=== PATIENT | male | born 1950 | race Hispanic/Latino ===

== ENCOUNTER 2022-05-10 06:04 | Day surgery (SDC) | payer OTHER, MEDICARE ==
[2022-05-05 11:47] LABS: BASOPHILS % (AUTO) 0.9 % (0.0-5.0); EOSINOPHILS % (AUTO) 2.9 % (0.0-8.0); HEMATOCRIT 36.9 % (42-54); LYMPHOCYTES % (AUTO) 27.8 % (21.0-51.0); MEAN CORPUSCULAR HEMOGLOBIN 27.4 pg (27.0-33.0); MEAN CORPUSCULAR HGB CONC 30.6 g/dL (32.0-36.0); MEAN CORPUSCULAR VOLUME 89.3 fL (79-99); MONOCYTES % (AUTO) 11.8 % (3.0-13.0); NEUTROPHILS % (AUTO) 56.4 % (40.0-77.0); PLATELET COUNT (AUTO) 166 K/uL (130-400); RED BLOOD CELL COUNT(AUTO) 4.13 MIL/uL (4.50-6.20); RED CELL DISTRIBUTION WIDTH 14.4 % (11.0-15.5); WHITE BLOOD COUNT (AUTO) 5.4 K/uL (4.8-10.8)
[2022-05-05 11:55] LABS: APPEARANCE,URINE CLEAR (CLEAR); BILIRUBIN,URINE NEGATIVE (NEGATIVE); COLOR,URINE COLORLESS (YELLOW); GLUCOSE, URINE (UA) NEGATIVE (NEGATIVE); KETONES,URINE NEGATIVE (NEGATIVE); LEUKOCYTE ESTERASE ,URINE NEGATIVE Leu/uL (NEGATIVE); NITRATE,URINE NEGATIVE (NEGATIVE); OCCULT BLOOD,URINE NEGATIVE (NEGATIVE); PH,URINE 6.5 (5.0-8.0); PROTEIN,URINE 10 mg/dL (NEGATIVE); UROBILINOGEN,URINE 0.2 mg/dL (0.2-1.0)
[2022-05-05 11:56] LABS: CREATININE 2.4 mg/dL (0.5-1.5); POTASSIUM 4.3 mmol/L (3.5-5.1)
[2022-05-05 11:58] LABS: INR 1.01 (0.85-1.15)
[2022-05-05 13:32] LABS: B-TYPE NATRIURETIC PEPTIDE 2150 pg/mL (0-100)
[2022-05-09 09:15] VITALS: BP_SYST 105; BP_SYST 124; BP_DIAS 67; BP_DIAS 68
[~2022-05-10] VITALS: Ht 170.2 cm; Wt 68.5 kg
[2022-05-10] VITALS (8 sets, daily range): BP systolic 104–143; BP diastolic 58–83
[~2022-05-10 06:04] MED LIST: 0.9% NACL 500ML IV.SOLN 500 ML IV SCH
[2022-05-10] MEDS ORDERED: 0.9%NACL 1000ML 1,000 ML IV ONE (07:15)
[2022-05-10] MEDS ORDERED: LIDOCAINE HCL-MPF 0.5% 50ML VIAL IJ ONE (07:17)
[2022-05-10] MEDS ORDERED: MIDAZOLAM HCL 1 MG/ML 2ML VIAL ONE (07:18)
[2022-05-10] MEDS ORDERED: FENTANYL CITRATE PF 50 MCG/1 ML 2ML VIAL ONE (07:19)
[2022-05-10] MEDS ORDERED: CARV3.12 PO (07:22)
[2022-05-10] MEDS ORDERED: TORS100T16 PO (07:23)
[2022-05-10] MEDS ORDERED: LINA145C PO (07:23)
[2022-05-10] MEDS ORDERED: ATOR40TA71 PO (07:23)
[2022-05-10] MEDS ORDERED: OMEP20TA20 PO (07:23)
[2022-05-10] MEDS ORDERED: SPIR25TA6 PO (08:11)
== END 2022-05-10 11:05 | disposition home or self-care (01) ==
LOC: DAH 06:04
PROVIDERS: ATTEND Internal Medicine Cardiovascular Disease
DX: I13.0 Hypertensive heart and chronic kidney disease with heart failure and stage 1 through stage 4 chronic kidney disease, or unspecified chronic kidney disease (principal); I27.20 Pulmonary hypertension, unspecified; N18.31 Chronic kidney disease, stage 3a; I50.42 Chronic combined systolic (congestive) and diastolic (congestive) heart failure; K21.9 Gastro-esophageal reflux disease without esophagitis; E78.5 Hyperlipidemia, unspecified; Z79.01 Long term (current) use of anticoagulants; Z79.899 Other long term (current) drug therapy; Z98.41 Cataract extraction status, right eye; Z98.42 Cataract extraction status, left eye; Z98.890 Other specified postprocedural states
CPT/HCPCS: 80048; 83880; 85025; 85610; 85730; 81003; 36415; 71045; 93005; 93451; C1894 ×3; J3010; J7030; J1644; J3490; A4215; A4222; A4221; A4663; A4216; A4606; A4223 ×3; J2250

== ENCOUNTER → 2022-05-19 | Outpatient (CLI) | payer OTHER, MEDICARE ==
[~2022-05-19] MED LIST changes: -0.9% NACL 500ML IV.SOLN 500 ML IV SCH; +ATOR40TA71 PO; +CARV3.12 PO; +LINA145C PO; +OMEP20TA20 PO; +SPIR25TA6 PO; +TORS100T16 PO
[2022-05-19 12:24] LABS: CREATININE 2.1 mg/dL (0.5-1.5)
== END | disposition home or self-care (01) ==
LOC: LAB 08:53
PROVIDERS: ATTEND Internal Medicine Cardiovascular Disease
DX: I50.22 Chronic systolic (congestive) heart failure (principal)
CPT/HCPCS: 36415; 80048